=== PATIENT | male | born 1965 | race Caucasian/White ===

== ENCOUNTER 2018-01-24 11:10 | Emergency (ER) | payer OTHER ==
[~2018-01-24] VITALS: Ht 172.7 cm; Wt 98.2 kg
[2018-01-24 11:44] VITALS: BP 159/107; Ht 172.7 cm; Wt 98.2 kg
== END 2018-01-24 13:33 | disposition home or self-care (01) ==
LOC: ED 11:10
DX: N34.2 Other urethritis (principal); I10 Essential (primary) hypertension
CPT/HCPCS: 87491; 87591; J0696